=== PATIENT | female | born 1985 | race Caucasian/White ===

== ENCOUNTER 2017-01-16 14:59 | Emergency (ER) | payer OTHER ==
[~2017-01-16 14:59] MED LIST: ACETAMINOPHEN PO; AUGMENTIN PO; BACTRIM DS TABL1 TA2 PO; BCP; HYDROCODON-ACE1 EAC9 PO; LEVAQUIN PO; LOPRESSOR PO; LORTAB ELIXIR15 ML DOB; MACROBID100 M1 PO; MACROBID100 MG PO; NO MEDICATIONS; NORCO 5/325 TAB1 TAB PO; NUVARING V1 VAG.RING VG; ORTHO TRI-7 DAYSX 3 PO; PHENERGAN25 M1 PO; PRENATAL1 TA1 PO; TYLENOL #3 PO; VICODIN 5/500 T1 TAB PO; VOLTAREN75 MG PO; ZOFRAN ODT4 MG SL; [UNRECOGNIZED DRUG - MIXTURE]; [UNRECOGNIZED DRUG - OTHER]
== END 2017-01-16 15:35 | disposition home or self-care (01) ==
LOC: SED 14:59
DX: H10.11 Acute atopic conjunctivitis, right eye (principal); G40.909 Epilepsy, unspecified, not intractable, without status epilepticus
CPT/HCPCS: 99283

== ENCOUNTER 2017-03-15 20:32 | Emergency (ER) | payer OTHER | END 2017-03-15 21:19 | disposition home or self-care (01) | LOC: SED 20:32 | DX: J20.9 Acute bronchitis, unspecified (principal); N13.70 Vesicoureteral-reflux, unspecified; Z88.0 Allergy status to penicillin; Z88.8 Allergy status to other drugs, medicaments and biological substances | CPT/HCPCS: 87651; 96372; 99283; J0561 ==

== ENCOUNTER 2017-05-29 09:53 | Emergency (ER) | payer OTHER ==
[~2017-05-29] VITALS: Ht 167.6 cm; Wt 120.2 kg
== END 2017-05-29 10:59 | disposition home or self-care (01) ==
LOC: SED 09:53
DX: J02.9 Acute pharyngitis, unspecified (principal); Z88.6 Allergy status to analgesic agent
CPT/HCPCS: 87651; 99283